=== PATIENT | male | born 1995 | race Two or more races ===

== ENCOUNTER 2024-03-26 21:50 | Emergency (ER) | payer SELFPAY ==
[~2024-03-26] VITALS: Ht 165.1 cm; Wt 93.9 kg
--- NOTE | 2024-03-26 23:27 | ED.PDOC ---
HPI (NEURO) HPI Comments 28-year-old male with no pertinent past medical history, presents to ED for headache x1 hour, without any other associated symptoms. Patient was at the pain started suddenly. He denies any dizziness, nausea, vomiting, fever, blurry vision, numbness, tingling. He states that he took Tylenol prior to arrival to the ED. He currently rates his pain as 6/10 in severity. Patient denies any recent injury or trauma. He denies any recent illness. He states that the pain goes from the back of his head to his bilateral temples. Chief Complaint: Headache Time Seen by MD: 22:16 Reviewed Notes: Nurses Notes, Medications, Allergies Mode of Arrival: Ambulatory Past Medical History PAST MEDICAL HISTORY: Denies Surgical History: Denies all surgeries Family History Family History: Reviewed,noncontributory to illness Social History Smoker: Non-Smoker Alcohol: Denies ETOH Use Drugs: Denies Drug Use Constitutional: denies: chills, diaphoresis, fatigue, fever, malaise, sweats, weakness, others EENTM: denies: blurred vision, double vision, ear bleeding, ear discharge, ear drainage, ear pain, ear ringing, eye pain, eye redness, hearing loss, mouth pain, mouth swelling, nasal discharge, nose bleeding, nose congestion, nose pain, photophobia, tearing, throat pain, throat swelling, voice changes, others Respiratory: denies: cough, hemoptysis, orthopnea, SOB at rest, shortness of breath, SOB with excertion, stridor, wheezing, others Cardiovascular: denies: chest pain, dizzy spells, diaphoresis, Dyspnea on exertion, edema, irregular heart beat, left arm pain, lightheadedness, palpitations, PND, syncope, others Gastrointestinal: denies: abdomen distended, abdominal pain, blood streaked bowels, constipated, diarrhea, dysphagia, difficulty swallowing, hematemesis, melena, nausea, poor appetite, poor fluid intake, rectal bleeding, rectal pain, vomiting, others Genitourinary: denies: burning, dysuria, flank pain, frequency, hematuria, incontinence, penile discharge, penile sore, pain, testicle pain, testicle swelling, urgency, others Neurological: reports: headache; denies: dizziness, fainting, left sided numbness, left sided weakness, numbness, paresthesia, pre-existing deficit, right sided numbness, right sided weakness, seizure, speech problems, tingling, tremors, weakness, others Musculoskeletal: denies: back pain, gout, joint pain, joint swelling, muscle pain, muscle stiffness, neck pain, others Integumetry: denies: bruises, change in color, change in hair/nails, dryness, laceration, lesions, lumps, rash, wounds, others Allergic/Immunocompromised: denies: Difficulty Healing, Frequent Infections, Hives, Itching, others Hematologic/Lymphatic: denies: anemia, blood clots, easy bleeding, easy bruising, swollen glands, others Endocrine: denies: excessive hunger, excessive sweating, excessive thirst, excessive urination, flushing, intolerance to cold, intolerance to heat, unexplained weight gain, unexplained weight loss, others Psychiatric: denies: anxiety, bipolar disorder, depression, hopeless, panic disorder, schizophrenia, sleepless, suicidal, others All Other Systems: Reviewed and Negative Physical Exam General Appearance: No Apparent Distress, Normal HEENT: Normal ENT Inspection, Pharynx Normal, TMs Normal Neck: Full Range of Motion, Non-Tender, Normal, Normal Inspection Respiratory: Chest Non-Tender, Lungs Clear, No Accessory Muscle Use, No Respiratory Distress, Normal Breath Sounds Cardiovascular: No Edema, No JVD, No Murmur, No Gallop, Normal Peripheral Pulses, Regular Rate/Rhythm Breast Exam: Deferred Gastrointestinal: No Organomegaly, Non Tender, No Pulsatile Mass, Normal Bowel Sounds, Soft Genitalia: Deferred Pelvic: Deferred Rectal: Deferred Extremities: No calf tenderness, Normal capillary refill, Normal inspection, Normal range of motion, Non-tender, No pedal edema Musculoskeletal : Apperance: Normal Neurologic: Alert, regional education coordinator II-XII nml as Tested, No Motor Deficits, Normal Affect, Normal Mood, No Sensory Deficits, Other (5/5 strength in bilateral upper and lower extremities. Negative facial droop. Negative pronator drift.) Cerebellar Function: Normal Reflexes: Normal Skin: Dry, Normal Color, Warm Lymphatic: No Adenopathy Was a procedure done? Was a procedure done?: No Differential Diagnosis (SZ) Headache: Cluster, Migraine, Closed Head Injury, CVA, Epidural Hemorrhage, Intracerebral Hemorrhage, Subarachnoid Hemorrhage, Subdural Hemorrhage, Mass Lesion, Post-Traumatic, Sinusitis X-Ray, Labs, Meds, VS Vital Signs Date Time Temp Pulse Resp B/P (MAP) Pulse Ox O2 Delivery O2 Flow Rate FiO2 03/26/24 22:06 98.1 74 16 132/82 (99) 99 X-Ray, Labs, Meds, VS Comment MDM: Patient with history as above presented with headache. History obtained from patient. Patient was nontoxic, stable, afebrile, ambulatory, no acute distress. Exam as above. Reviewed external records. All findings were discussed with the patient. Differential diagnosis considered. Overall presentation is consistent with likely tension headache. Low suspicion for intracranial bleed, CVA, meningitis. Patient was treated with Toradol with improvement in symptoms. Patient was reevaluated and vital signs were reviewed. Consideration was given for admission, but the patient was stable for outpatient management. Disposition: Discussed the need to follow up diagnostics, including incidental findings. Discharged the patient with instructions to obtain outpatient follow up in 1-2 days of today's symptoms and findings, with strict return precautions if patient develops new or worsening symptoms. This medical document was created using the [employer] dictation system. Although this document has been carefully reviewed, there may still be some phonetic and typographical errors, which are due to imperfections of the software program, and do not reflect any compromise in the patient's medical care. Time of 1ST Reevaluation: 23:26 Reevaluation 1ST: Improved Patient Education/Counseling: Diagnosis, Treatment, Prognosis, Need For Follow Up Family Education/Counseling: No Family Present Departure 1 Departure Time of Disposition: 23:26 Impression: Primary Impression: Tension headache Disposition: 01 HOME / SELF CARE / HOMELESS Condition: Fair Critical Care Note Critical Care Time?: No Stability Stability form required: No Heart Score Heart Score: Heart Score Response (Comments) Value History N/A 0 EKG N/A 0 Age N/A 0 Risk Factors N/A 0 Troponin N/A 0 Total 0 RONDA JACOBO PAC Mar 26, 2024 23:27
[2024-03-26] MEDS: KETOROLAC TROMETH 30 MG/ML 1ML VIAL IM ONE (23:49)
[2024-03-26 23:58] VITALS: BP 125/76; PULSE 69; RESP 16; TEMP 97.8; O2SAT 99
[2024-03-28] MEDS ORDERED: IBUP1TAB5 PO ×2 (09:36→20:43)
== END 2024-03-27 00:01 | disposition home or self-care (01) ==
LOC: ER 21:50
DX: G44.209 Tension-type headache, unspecified, not intractable (principal)
CPT/HCPCS: 96372; 99283; J1885

== ENCOUNTER 2024-03-28 08:25 | Emergency (ER) | payer MEDICAID, OTHER ==
[~2024-03-28] VITALS: Ht 165.1 cm; Wt 91.5 kg
--- NOTE | 2024-03-28 09:19 | DVH ---
EXAM: CT HEAD WITHOUT CONTRAST INDICATION: R/o intracranial bleed TECHNIQUE: CT of the head without intravenous contrast. Coronal and sagittal reformatted images are submitted. Radiation Dose : 1. Head: CT Dose: CTDI volume is 60.39 mGy. Dose-length product is 967.92 mGy*cm The dose indicators for CT are the volume Computed Tomography (CT) Dose Index (CTDIvol) and the Dose Length Product (DLP), and are measured in units of mGy and mGy-cm, respectively. These indicators are not patient dose, but values generated from the CT scanner acquisition factors. The report includes radiation exposure data for exposures received during this examination. All CT scans at this medical facility are performed using dose modulation techniques as appropriate to a performed exam including the following: Automated exposure control was utilized; adjustment of the MA and/or KV according to patient size; and use of iterative reconstruction technique. COMPARISON: None FINDINGS: There is no evidence of acute intracranial hemorrhage, extra-axial collection, mass effect, midline s hift, herniation or hydrocephalus. The ventricles, sulci and cisterns are age appropriate. The corona-white differentiation is intact. The visualized paranasal sinuses and mastoid air cells are clear. No depressed calvarial fracture. The surrounding soft tissues are unremarkable. IMPRESSION: 1. No evidence of acute intracranial abnormality.
[2024-03-28] MEDS ORDERED: IBUP1TAB5 PO ×2 (09:36→20:43)
--- NOTE | 2024-03-28 09:37 | ED.PDOC ---
HPI (NEURO) HPI Comments 28-year-old male with no pertinent past medical history, presents to ED for headache x 20 minutes prior to arrival, associated with nausea. Patient reports the headache started after he had a bowel movement. He states that the pain was rated as 10/10 in severity, however has decreased to 3/10 severity now. He denies any numbness, tingling, LOC, recent trauma or injury, fever, neck pain. No alleviating or aggravating factors. Patient was seen here two days ago for headache as well. Chief Complaint: Headache Time Seen by MD: 08:35 Primary Care Provider: NONE Reviewed Notes: Nurses Notes, Medications, Allergies Mode of Arrival: Ambulatory Past Medical History PAST MEDICAL HISTORY: Denies Surgical History: Denies all surgeries Family History Family History: Reviewed,noncontributory to illness Social History Smoker: Non-Smoker Alcohol: Denies ETOH Use Drugs: Denies Drug Use Constitutional: denies: chills, diaphoresis, fatigue, fever, malaise, sweats, weakness, others EENTM: denies: blurred vision, double vision, ear bleeding, ear discharge, ear drainage, ear pain, ear ringing, eye pain, eye redness, hearing loss, mouth pain, mouth swelling, nasal discharge, nose bleeding, nose congestion, nose pain, photophobia, tearing, throat pain, throat swelling, voice changes, others Respiratory: denies: cough, hemoptysis, orthopnea, SOB at rest, shortness of breath, SOB with excertion, stridor, wheezing, others Cardiovascular: denies: chest pain, dizzy spells, diaphoresis, Dyspnea on exertion, edema, irregular heart beat, left arm pain, lightheadedness, palpitations, PND, syncope, others Gastrointestinal: reports: nausea; denies: abdomen distended, abdominal pain, blood streaked bowels, constipated, diarrhea, dysphagia, difficulty swallowing, hematemesis, melena, poor appetite, poor fluid intake, rectal bleeding, rectal pain, vomiting, others Genitourinary: denies: burning, dysuria, flank pain, frequency, hematuria, inc ontinence, penile discharge, penile sore, pain, testicle pain, testicle swelling, urgency, others Neurological: reports: headache; denies: dizziness, fainting, left sided numbness, left sided weakness, numbness, paresthesia, pre-existing deficit, right sided numbness, right sided weakness, seizure, speech problems, tingling, tremors, weakness, others Musculoskeletal: denies: back pain, gout, joint pain, joint swelling, muscle pain, muscle stiffness, neck pain, others Integumetry: denies: bruises, change in color, change in hair/nails, dryness, laceration, lesions, lumps, rash, wounds, others Allergic/Immunocompromised: denies: Difficulty Healing, Frequent Infections, Hives, Itching, others Hematologic/Lymphatic: denies: anemia, blood clots, easy bleeding, easy bruising, swollen glands, others Endocrine: denies: excessive hunger, excessive sweating, excessive thirst, excessive urination, flushing, intolerance to cold, intolerance to heat, unexplained weight gain, unexplained weight loss, others Psychiatric: denies: anxiety, bipolar disorder, depression, hopeless, panic disorder, schizophrenia, sleepless, suicidal, others All Other Systems: Reviewed and Negative Physical Exam General Appearance: No Apparent Distress, Normal HEENT: Normal ENT Inspection, Pharynx Normal, TMs Normal Neck: Full Range of Motion, Non-Tender, Normal, Normal Inspection Respiratory: Chest Non-Tender, Lungs Clear, No Accessory Muscle Use, No Respiratory Distress, Normal Breath Sounds Cardiovascular: No Edema, No JVD, No Murmur, No Gallop, Normal Peripheral Pulses, Regular Rate/Rhythm Breast Exam: Deferred Gastrointestinal: No Organomegaly, Non Tender, No Pulsatile Mass, Normal Bowel Sounds, Soft Genitalia: Deferred Pelvic: Deferred Rectal: Deferred Extremities: No calf tenderness, Normal capillary refill, Normal inspection, Normal range of motion, Non-tender, No pedal edema Musculoskeletal : Apperance: Normal Neurologic: Alert, associate technician II-XII nml as Tested, No Motor Deficits, Normal Affect, Normal Mood, No Sensory Deficits, Other (5/5 strength in bilateral upper and lower extremities, negative facial droop, negative pronator drift) Cerebellar Function: Normal Reflexes: Normal Skin: Dry, Normal Color, Warm Lymphatic: No Adenopathy Was a procedure done? Was a procedure done?: No Differential Diagnosis (SZ) Seizure: N/A Headache: Cluster, Migraine, Closed Head Injury, CVA, Epidural Hemorrhage, Intracerebral Hemorrhage, Subarachnoid Hemorrhage, Subdural Hemorrhage, Mass Lesion, Post-Traumatic, Sinusitis, Trigeminal Neuralgia X-Ray, Labs, Meds, VS Vital Signs Date Time Temp Pulse Resp B/P (MAP) Pulse Ox O2 Delivery O2 Flow Rate FiO2 03/28/24 08:30 98.4 87 18 144/80 (101) 100 X-Ray, Labs, Meds, VS Comment CT Head IMPRESSION: 1. No evidence of acute intracranial abnormality. MDM: Patient with history as above presented with headache. History obtained from patient. Patient was nontoxic, stable, afebrile, ambulatory, no acute distress. Exam as above. Independently reviewed imaging. CT head did not show any acute intracranial abnormality. Reviewed external records. All findings were discussed with the patient. Differential diagnosis considered. Overall presentation is consistent with likely tension headache. Low suspicion for intracranial bleed, CVA, meningitis. Patient was treated with Toradol with improvement in symptoms. Patient was reevaluated and vital signs were reviewed. Consideration was given for admission, but the patient was stable for outpatient management. Disposition: Discussed the need to follow up diagnostics, including incidental findings. Discharged the patient with instructions to obtain outpatient follow up in 1-2 days of today's symptoms and findings, with strict return precautions if patient develops new or worsening symptoms. This medical document was created using the [employer] dictation system. Although this document has been carefully reviewed, there may still be some phonetic and typographical errors, which are due to imperfections of the software program, and do not reflect any compromise in the patient's medical care. Time of 1ST Reevaluation: 09:35 Reevaluation 1ST: Improved Patient Education/Counseling: Diagnosis, Treatment, Prognosis, Need For Follow Up Family Education/Counseling: No Family Present Departure 1 Departure Time of Disposition: 09:36 Impression: Primary Impression: Tension headache Disposition: 01 HOME / SELF CARE / HOMELESS Condition: Fair e-Prescriptions Ibuprofen Micronized (Ibuprofen) 600 Mg Tab 600 MG PO [id number] PRN, #30 TAB Prov: RONDA JACOBO 03/28/24 Critical Care Note Critical Care Time?: No Stability Stability form required: No Heart Score Heart Score: Heart Score Response (Comments) Value History N/A 0 EKG N/A 0 Age N/A 0 Risk Factors N/A 0 Troponin N/A 0 Total 0 RONDA JACOBO Mar 28, 2024 09:37
[2024-03-28] MEDS: KETOROLAC TROMETH 30 MG/ML 1ML VIAL IM ONE (10:08)
[2024-03-28 10:19] VITALS: BP 152/79; PULSE 66; TEMP 97.8
[2024-03-28 10:21] VITALS: RESP 17; O2SAT 98
== END 2024-03-28 10:22 | disposition home or self-care (01) ==
LOC: ER 08:25
DX: G44.209 Tension-type headache, unspecified, not intractable (principal)
CPT/HCPCS: 70450; 96372; 99285; J1885